=== PATIENT | female | born 1945 | race Caucasian/White ===

== ENCOUNTER → 2017-02-23 | Outpatient (CLI) | payer MEDICARE, OTHER ==
[~2017-02-23] MED LIST: ACET-1600 PO; ALBU18HF PO; ALLEGRA ALLERGY PO; ALPR0.254 PO; AMLO10TA2 PO; ANTI-DIARRHEAL PO; ASPI325T4 PO; ASPI325T80 PO; ATOR40TA78 PO; BIFI4CAP PO; DICL75TA2 PO; DICY10CA3 PO; ESCI20TA PO; LEVO175T2 PO; LOSA100T6 PO; MONT10TA9 PO; MULT1TAB11 PO; OXYC5TAB2 PO; OXYC5TAB3 PO; RANI150T8 PO; TIOT18CA INH; TRAM50TA2 PO; VITAMIN D3 PO; [UNRECOGNIZED DRUG - OTHER] PO; [UNRECOGNIZED DRUG - OTHER] PO
== END | disposition home or self-care (01) ==
LOC: CFH 06:57
PROVIDERS: ATTEND Family Medicine
DX: R22.9 Localized swelling, mass and lump, unspecified (principal)
CPT/HCPCS: 76705